=== PATIENT | female | born 1985 | race Caucasian/White ===

== ENCOUNTER 2019-12-16 15:45 | Inpatient (IN) | payer OTHER ==
[2019-12-16] VITALS (14 sets, daily range): BP systolic 107–130; BP diastolic 45–92; PULSE 59–100; TEMP 98.2–98.3
[~2019-12-16] VITALS: Ht 160.1 cm; Wt 71.4 kg
[~2019-12-16 15:45] MED LIST: MOTRIN 600600 MG/TAB PO; PERCOCET 325 MG1 TA2 PO; PREDNISONE 5MG5 MG PO; PREDNISONE10 MG PO; [UNRECOGNIZED DRUG - OTHER] PO
[2019-12-16 16:24] LABS: BASO % 0.3 % (0.0-2.0); EOS % 0.1 % (0-4.0); GRAN % 78.5 % (42.2-75.2); HEMOGLOBIN 11.6 g/dl (12.5-16.0); LYMPH # 1.5 (1.2-3.4); LYMPH % 14.3 % (20.0-51.0); MEAN CELL VOLUME 86 fl (80.0-100.0); MEAN CORPUSCULAR HEMOGLOBIN 28 pg (27.0-31.0); MEAN CORPUSCULAR HGB CONC 33 g/dl (33.0-37.0); MEAN PLATELET VOLUME 12.9 fl (7.4-10.4); MONO # 0.6 (0.1-0.6); MONO % 6.1 % (1.7-9.3); PLATELET COUNT 115 K/mm3 (130-400)
[2019-12-16 16:25] LABS: HEMATOCRIT 35.4 % (37.0-47.0)
--- NOTE | 2019-12-16 18:07 | NUR ---
2502 - Pt and spouse arrive ambulatory to unit. Pt states she is having contractions, started this morning and are getting worse this afternoon. States they are now about 6 minutes apart. Pt denies vaginal bleeding, leaking of fluid, reports good movement. EFM explained and placed, VS taken, assessment complete. PHILL Wallis, RN . Dr. Montiel notified.
--- NOTE | 2019-12-16 18:57 | NUR ---
1610 - Pt admitted with plan for repeat . 1615 - IV started in , labs drawn by Claribel Wallis RN. LR started per preop protocol. 1630 - Roles to pt bedside. Discuss plan for repeat as soon as OR ready. Pt agrees to plan. Pt in constant pain at this time, worsening with contractions. FHR remains WNL with good accelerations. 1640 - Late deceleration noted, lasting 80 seconds, moderate variability remains. RN remains at bedside, Roles on unit and monitoring FHR. 1649 - Deceleration with contraction noted, lasting 60 seconds with moderate variability. 1650 - Pt taken off monitors and taken to OR for repeat .
--- NOTE | 2019-12-16 21:23 | NUR ---
GENERAL DIET TAKEN WELL 100% GENT[employer] MASSAGE- FIRM. VERY TENDER WITH MASSAGE
[2019-12-17 00:09] VITALS: BP 130/76; PULSE 63; TEMP 98.2
[2019-12-17 05:05] VITALS: BP 138/64; PULSE 81; TEMP 98.2
[2019-12-17 06:59] LABS: BASO % 0.1 % (0.0-2.0); GRAN # 9.5 (1.4-6.5); GRAN % 81.9 % (42.2-75.2); LYMPH # 1.2 (1.2-3.4); LYMPH % 10.7 % (20.0-51.0); MEAN CELL VOLUME 89 fl (80.0-100.0); MEAN CORPUSCULAR HGB CONC 32 g/dl (33.0-37.0); MEAN PLATELET VOLUME 13.5 fl (7.4-10.4); MONO # 0.8 (0.1-0.6); MONO % 6.7 % (1.7-9.3); PLATELET COUNT 126 K/mm3 (130-400); RED BLOOD COUNT 2.51 M/mm3 (4.10-5.30); REDCELL DISTRIBUTION WIDTH-CV 13.2 % (11.5-14.5)
[2019-12-17 07:01] LABS: HEMATOCRIT 22.3 % (37.0-47.0); HEMOGLOBIN 7.2 g/dl (12.5-16.0); MEAN CORPUSCULAR HEMOGLOBIN 29 pg (27.0-31.0)
[2019-12-17 07:57] VITALS: BP 111/63; PULSE 77; TEMP 98.1
[2019-12-17 11:23] VITALS: BP 116/55; PULSE 75; TEMP 98.1
[2019-12-17 16:13] VITALS: BP 128/69; PULSE 92; TEMP 98.1
[2019-12-17 20:00] VITALS: BP 127/67; PULSE 100; TEMP 99
[2019-12-18 09:30] VITALS: BP 117/65; PULSE 87; TEMP 98
[2019-12-18] MEDS ORDERED: IBU600 MG PO (10:07)
[2019-12-18] MEDS ORDERED: PERCOCET 325 MG1 TA2 PO (10:07)
== END 2019-12-18 11:40 | disposition home or self-care (01) | DRG 786 ==
LOC: LDRO 15:45 → LDR 16:09 → OB 16:09
PROVIDERS: ADMIT Obstetrics & Gynecology
PROC: 10D00Z1 Extraction of Products of Conception, Low, Open Approach (ICD-10-PCS; principal; 2019-12-16)
DX: O60.23X0 Term delivery with preterm labor, third trimester, not applicable or unspecified (principal); O71.1 Rupture of uterus during labor; O99.12 Other diseases of the blood and blood-forming organs and certain disorders involving the immune mechanism complicating childbirth; O34.211 Maternal care for low transverse scar from previous cesarean delivery; D69.6 Thrombocytopenia, unspecified; O90.81 Anemia of the puerperium; D50.0 Iron deficiency anemia secondary to blood loss (chronic); O75.82 Onset (spontaneous) of labor after 37 completed weeks of gestation but before 39 completed weeks gestation, with delivery by (planned) cesarean section; O99.334 Smoking (tobacco) complicating childbirth; Z3A.37 37 weeks gestation of pregnancy; Z37.0 Single live birth; Z88.0 Allergy status to penicillin
CPT/HCPCS: J0690; J1100; J1885; J2270; J2370; J2590; J7120

== ENCOUNTER 2023-11-04 18:01 | Emergency (ER) | payer OTHER ==
[~2023-11-04] VITALS: Ht 157.5 cm; Wt 52.7 kg
[~2023-11-04 18:01] MED LIST changes: +IBU600 MG PO
[2023-11-04] MEDS ORDERED: metroNIDAZOLE 100 ML IV ONE (18:45)
[2023-11-04 18:46] LABS: BASO % 0.2 % (0.0-2.0); EOS # 0.1 K/mm3 (0.0-0.7); EOS % 0.6 % (0.0-4.0); GRAN # 6.9 K/mm3 (1.4-6.5); GRAN % 77.8 % (42.2-75.2); HEMATOCRIT 38.1 % (37.0-47.0); HEMOGLOBIN 12.6 g/dl (12.5-16.0); LYMPH # 1.4 K/mm3 (1.2-3.4); LYMPH % 15.5 % (20.0-51.0); MEAN CELL VOLUME 90 fl (80.0-100.0); MEAN CORPUSCULAR HEMOGLOBIN 30 pg (27-31); MEAN CORPUSCULAR HGB CONC 33 g/dl (33.0-37.0); MEAN PLATELET VOLUME 10.9 fl (7.4-10.4); MONO # 0.5 K/mm3 (0.1-0.6); MONO % 5.7 % (1.7-9.3); PLATELET COUNT 178 K/mm3 (130-400); RED BLOOD COUNT 4.23 M/mm3 (4.10-5.30); REDCELL DISTRIBUTION WIDTH-CV 13.5 % (11.5-14.5)
[2023-11-04 19:03] LABS: ALBUMIN 3.7 g/dL (3.5-5.0); BILIRUBIN,TOTAL 0.3 mg/dL (0.2-1.2); CALCIUM 9.7 mg/dL (8.4-10.2); CREATININE, serum 0.73 mg/dL (0.57-1.11); POTASSIUM 3.9 mEq/L (3.5-4.5); TOTAL PROTEIN 7.6 g/dl (6.2-8.1)
[2023-11-04] MEDS ORDERED: dexAMETHasone 10 MG/ML VIAL IV ONE (19:30)
[2023-11-04] MEDS ORDERED: Ketorolac 30 MG/ML VIAL IV ONE (19:30)
[2023-11-04] MEDS ORDERED: metroNIDAZOLE 250 MG TAB PO ONE (21:15)
[2023-11-04 21:50] VITALS: BP 111/63; PULSE 96; TEMP 98.3
== END 2023-11-04 21:50 | disposition home or self-care (01) ==
LOC: COL.ER 18:01
PROVIDERS: Family Medicine
DX: J36 Peritonsillar abscess (principal); F17.200 Nicotine dependence, unspecified, uncomplicated
CPT/HCPCS: J1100; J1836; J1885; J1956